=== PATIENT | female | born 2000 | race African-American/Black ===

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

== ENCOUNTER 2024-10-19 03:10 | Emergency (ER) | payer BC, OTHER ==
[~2024-10-19] VITALS: Ht 157.5 cm; Wt 72.8 kg
[2024-10-19 03:36] VITALS: BP 129/84; PULSE 89; RESP 16; TEMP 98.8; O2SAT 96
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
[2024-10-19] MEDS ORDERED: CEPH500C PO (03:45)
[2024-10-19] MEDS ORDERED: ACET500T58 PO (03:45)
== END 2024-10-19 04:27 | disposition home or self-care (01) ==
LOC: ER 03:10
DX: S01.01XA Laceration without foreign body of scalp, initial encounter (principal); W22.8XXA Striking against or struck by other objects, initial encounter; Y93.89 Activity, other specified; Y92.89 Other specified places as the place of occurrence of the external cause; Y99.8 Other external cause status
CPT/HCPCS: 12001